=== PATIENT | female | born 1930 | race Caucasian/White ===

== ENCOUNTER 2016-07-29 13:24 | Inpatient (IN) | payer MEDICARE, BC ==
[~2016-07-29] VITALS: Ht 175.3 cm; Wt 65.5 kg
[~2016-07-29 13:24] MED LIST: ALEV220T14 PO; CETI10 PO; LEVO75TA41 PO; LORT5TAB PO; METO50TA11 PO; MOME17I; OMEP40CA2 PO; ONDA1TAB16 PO; SIMV20TA PO; TRAM50 PO
[2016-07-29 13:44] VITALS: BP 136/88; PULSE 78; RESP 16; TEMP 98.1; O2SAT 93
[2016-07-29] MEDS ORDERED: TRAM50TA PO (14:12)
[2016-07-29] MEDS ORDERED: BP med PO (14:12)
[2016-07-29] MEDS ORDERED: COUM5TAB PO (14:12)
[2016-07-29] MEDS ORDERED: LEVO75TA3 PO (14:12)
[2016-07-29] MEDS ORDERED: SODIUM CHLORIDE 0.9% FLUSH 10 ML FLUSH IVF PRN (14:15)
--- NOTE | 2016-07-29 14:29 | PD ---
HPI Chief Complaint: Fall Time Seen by Provider: 13:55 Travel History International Travel<30 days: No Contact w/Intl Traveler<30days: No Traveled to known affect area: No History of Present Illness HPI Patient is an 86-year-old female who presents to emergency room with complaints of fall. Patient reports that she was at the parking lot of a grocery store, reports that she lost her balance and fell backwards thing her buttocks. Patient reports that her head did go backwards and she the back of her head on the cement walkway. Patient denies loss of consciousness or dizziness or headache after fall. Patient reports that she is taking Coumadin as she has history of bilateral pulmonary emboli. Patient is unsure of when her last INR was. Patient reports that she was able to get up to ambulate after her fall with assist. Patient reports pain to her right buttochs as well as b/l elbows as this is where she took the brunt of her fall. Patient denies cp/sob. Denies abdominal pain. Reports nausea with no vomiting. Reports "everytime I get nervous, I feel nauseous." PFSH Past Medical History Arthritis: Yes Anxiety: Yes High Cholesterol: Yes Coronary Artery Disease: Yes Dementia: Yes Diminished Hearing: No Deep Vein Thrombosis: Yes GERD: Yes Hypertension: Yes Respiratory: Yes (PE) Thyroid Disease: Yes (Hypo-) Tetanus Vaccination: < 5 Years Influenza Vaccination: Yes ?: Not Menopausal: Yes Past Surgical History Body Medical Devices: IVC filter Hysterectomy: Yes Joint Replacement: Yes (BL hips, Lt. knee ) Tonsillectomy: Yes (& adenoids ) Other Surgery: Yes (Deviated septum ) Social History Alcohol Use: Yes (Occ.) Tobacco Use: No Substance Use: No Allergies-Medications (Allergen,Severity, Reaction): Coded Allergies: No Known Allergies (Unverified , 07/29/16) Reported Meds & Prescriptions Reported Meds & Active Scripts Active Reported [BP med] 1 Tab PO DAILY Tramadol (Tramadol HCl) 50 Mg Tab 50 Mg PO Q8H PRN Levothyroxine (Levothyroxine Sodium) 75 Mcg Tab 75 Mcg PO DAILY Coumadin (Warfarin) 5 Mg Tab 5 Mg PO DAILY Review of Systems General / Constitutional: No: Fever, Chills Eyes: No: Diploplia, Visual changes HENT: No: Headaches, Vertigo, Lightheadedness, Sore Throat Cardiovascular: No: Chest Pain or Discomfort Respiratory: No: Shortness of Breath Gastrointestinal: No: Abdominal Pain Genitourinary: No: Dysuria Musculoskeletal: Positive: Pain (pain to b/l elbows and rigth buttoch) Skin: No Rash Neurologic: No: Weakness Psychiatric: No: Depression Endocrine: No: Polydipsia Hematologic/Lymphatic: No: Easy Bruising Physical Exam Narrative GENERAL: NAD, Nontoxic SKIN: Focused skin assessment warm/dry. HEAD: Atraumatic. Normocephalic. EYES: Pupils equal and round. No scleral icterus. No injection or drainage. ENT: No nasal bleeding or discharge. Mucous membranes pink and moist. NECK: Trachea midline. No JVD. CARDIOVASCULAR: Regular rate and rhythm. No murmur appreciated. RESPIRATORY: No accessory muscle use. Clear to auscultation. Breath sounds equal bilaterally. GASTROINTESTINAL: Abdomen soft, non-tender, nondistended. Hepatic and splenic margins not palpable. patient with pain to left side of pelvis MUSCULOSKELETAL: No obvious deformities. No clubbing. No cyanosis. No edema. No midline tenderness, patient with pain to b/l elbows - she does have good ROM to both elbows - there is bruising to both elbows, patient with bruising and point tenderness to her right buttochs NEUROLOGICAL: Awake and alert. No obvious cranial nerve deficits. Motor grossly within normal limits. Normal speech. PSYCHIATRIC: Appropriate mood and affect; insight and judgment normal. Data Data Last Documented VS Vital Signs Date Time Temp Pulse Resp B/P Pulse Ox O2 Delivery O2 Flow Rate FiO2 07/29/16 16:35 70 14 147/87 95 Room Air 07/29/16 13:44 98.1 Orders Prothrombin Time / Inr (Pt) (07/29/16 14:04) Act Partial Throm Time (Ptt) (07/29/16 14:04) Complete Blood Count With Diff (07/29/16 14:04) Basic Metabolic Panel (Bmp) (07/29/16 14:04) Iv Access Insert/Monitor (07/29/16 14:04) Ondansetron Inj (Zofran Inj) (07/29/16 14:15) Sodium Chloride 0.9% Flush (Ns Flush) (07/29/16 14:15) Chest, Single Ap (07/29/16 14:04) Pelvis, Ap Only (Routine) (07/29/16 14:04) Ct Brain W/O Iv Contrast(Rout) (07/29/16 14:04) Ct Cerv Spine W/O Contrast (07/29/16 14:04) Spine, Lumbar - Ltd (Ap & Lat) (07/29/16 ) Ct Abd/Pel W Iv Contrast(Rout) (07/29/16 17:07) Add Patient To Providers List (07/29/16 ) Place In Observation (07/29/16 ) Vital Signs (Adult) Q4H (07/29/16 17:06) Activity Bed Rest (07/29/16 17:06) Sodium Chloride 0.9% Flush (Ns Flush) (07/29/16 17:15) Sodium Chloride 0.9% Flush (Ns Flush) (07/29/16 21:00) Ondansetron Inj (Zofran Inj) (07/29/16 17:15) Bisacodyl Supp (Dulcolax Supp) (07/29/16 17:15) Docusate Sodium (Colace) (07/29/16 21:00) Basic Metabolic Panel (Bmp) (07/30/16 06:00) Comprehensive Metabolic Panel (07/30/16 06:00) Prothrombin Time / Inr (Pt) (07/30/16 06:00) Pt Request For Service (07/29/16 17:06) Case Management Consult (07/29/16 17:06) Scd Bilateral/Knee High GAY.BID (07/29/16 17:06) Acetaminophen (Tylenol) (07/29/16 17:15) Acetamin-Hydrocod 325-5 Mg (Phelps 5-325 (07/29/16 17:15) Acetamin-Hydrocod 325-7.5 Mg (Phelps 7.5 (07/29/16 17:15) Morphine Inj (Morphine Inj) (07/29/16 17:15) Naloxone Inj (Narcan Inj) (07/29/16 17:15) ^ Other Nursing Orders (07/29/16 17:06) Creatine Kinase (Cpk) (07/30/16 06:00) Levothyroxine (Synthroid) (07/30/16 06:00) Enalaprilat Inj (Vasotec Inj) (07/29/16 17:15) Clonidine (Catapres) (07/29/16 17:15) Iohexol 350 Inj (Omnipaque 350 Inj) (07/29/16 17:49) Labs Laboratory Tests Test 07/29/16 14:35 White Blood Count 6.4 TH/MM3 Red Blood Count 4.48 MIL/MM3 Hemoglobin 13.0 GM/DL Hematocrit 38.7 % Mean Corpuscular Volume 86.5 FL Mean Corpuscular Hemoglobin 29.0 PG Mean Corpuscular Hemoglobin 33.6 % Concent Red Cell Distribution Width 15.5 % Platelet Count 187 TH/MM3 Mean Platelet Volume 8.3 FL Neutrophils (%) (Auto) 56.6 % Lymphocytes (%) (Auto) 30.9 % Monocytes (%) (Auto) 7.9 % Eosinophils (%) (Auto) 4.0 % Basophils (%) (Auto) 0.6 % Neutrophils # (Auto) 3.6 TH/MM3 Lymphocytes # (Auto) 2.0 TH/MM3 Monocytes # (Auto) 0.5 TH/MM3 Eosinophils # (Auto) 0.3 TH/MM3 Basophils # (Auto) 0.0 TH/MM3 CBC Comment DIFF FINAL Differential Comment Prothrombin Time 21.4 SEC Prothromb Time International 1.9 RATIO Ratio Activated Partial 29.8 SEC Thromboplast Time Sodium Level 143 MEQ/L Potassium Level 3.8 MEQ/L Chloride Level 108 MEQ/L Carbon Dioxide Level 26.1 MEQ/L Anion Gap 9 MEQ/L Blood Urea Nitrogen 13 MG/DL Creatinine 0.89 MG/DL Estimat Glomerular Filtration 60 ML/MIN Rate Random Glucose 100 MG/DL Calcium Level 9.2 MG/DL [facility] Medical Decision Making Medical Screen Exam Complete: Yes Emergency Medical Condition: Yes Interpretation(s) Vital Signs Date Time Temp Pulse Resp B/P Pulse Ox O2 Delivery O2 Flow Rate FiO2 07/29/16 13:44 98.1 78 16 136/88 93 Differential Diagnosis Intracranial hemorrhage, elbow fracture, sacral fracture, elbow contusion, Coumadin coagulopathy, pelvic fracture Narrative Course Patient is an 86-year-old female currently on Coumadin, presents to emergency room after she had a trip and fall outside of a grocery store. Patient reports that she tripped on the cement and fell backwards landing elbows and on her b/l elbows as well as her buttocks. Reports that her head did fall backward and did hit the pavement. Patient with no loc on scene. Patient was able to ambulate after her fall. Overall, patient is nontoxic and evaluation. Patient has no neurological deficits. Patient does have multiple abrasions on her elbows, buttochs. Patient with no hematoma or laceration to scalp. Plan to check coags, we'll scan head and neck. X-ray of the chest as well as pelvis and lumbar spine order. Laboratory Tests Test 07/29/16 14:35 White Blood Count 6.4 TH/MM3 (4.0-11.0) Red Blood Count 4.48 MIL/MM3 (4.00-5.30) Hemoglobin 13.0 GM/DL (11.6-15.3) Hematocrit 38.7 % (35.0-46.0) Mean Corpuscular Volume 86.5 FL (80.0-100.0) Mean Corpuscular Hemoglobin 29.0 PG (27.0-34.0) Mean Corpuscular Hemoglobin 33.6 % Concent (32.0-36.0) Red Cell Distribution Width 15.5 % (11.6-17.2) Platelet Count 187 TH/MM3 (150-450) Mean Platelet Volume 8.3 FL (7.0-11.0) Neutrophils (%) (Auto) 56.6 % (16.0-70.0) Lymphocytes (%) (Auto) 30.9 % (9.0-44.0) Monocytes (%) (Auto) 7.9 % (0.0-8.0) Eosinophils (%) (Auto) 4.0 % (0.0-4.0) Basophils (%) (Auto) 0.6 % (0.0-2.0) Neutrophils # (Auto) 3.6 TH/MM3 (1.8-7.7) Lymphocytes # (Auto) 2.0 TH/MM3 (1.0-4.8) Monocytes # (Auto) 0.5 TH/MM3 (0-0.9) Eosinophils # (Auto) 0.3 TH/MM3 (0-0.4) Basophils # (Auto) 0.0 TH/MM3 (0-0.2) CBC Comment DIFF FINAL Differential Comment Prothrombin Time 21.4 SEC (9.8-11.6) Prothromb Time International 1.9 RATIO Ratio Activated Partial 29.8 SEC Thromboplast Time (24.3-30.1) Sodium Level 143 MEQ/L (136-145) Potassium Level 3.8 MEQ/L (3.5-5.1) Chloride Level 108 MEQ/L (98-107) Carbon Dioxide Level 26.1 MEQ/L (21.0-32.0) Anion Gap 9 MEQ/L (5-15) Blood Urea Nitrogen 13 MG/DL (7-18) Creatinine 0.89 MG/DL (0.50-1.00) Estimat Glomerular Filtration 60 ML/MIN (>89) Rate Random Glucose 100 MG/DL (74-106) Calcium Level 9.2 MG/DL (8.5-10.1) Last Impressions Pelvis X-Ray 07/29/161403 Signed Impressions: Service Date/Time: July 14:16 - CONCLUSION: Fracture of left inferior pubic ramus not present on the study from 2012, however the chronicity is not certain. Natalya Katz MD Head CT 07/29/161403 Signed Impressions: Service Date/Time: July 15:05 - CONCLUSION: Slight atrophic and small vessel ischemic changes without any evidence for acute hemorrhage or mass effect. Natalya Katz MD Chest X-Ray 07/29/161403 Signed Impressions: Service Date/Time: July 14:25 - CONCLUSION: 1. Cardiomegaly. 2. Degenerative changes and scoliosis of the thoracolumbar spine. 3. No acute focal pulmonary infiltrate or pulmonary vascular congestion. Clark Wagner MD Cervical Spine CT 07/29/161403 Signed Impressions: Service Date/Time: July 15:05 - CONCLUSION: 1. Diffuse cervical spondylosis at all levels within the cervical spine. 2. Severe right neural foraminal narrowing at C5-6 and C4-5, moderate to severe left neural foraminal narrowing at C3-4, moderate bilateral foraminal narrowing at C6-7 and mild to moderate left neural foraminal narrowing at C4-5 and C5-6. 3. No acute fracture or prevertebral soft tissue swelling. 4. Fibrotic scarring within the apices bilaterally. Clark Wagner MD Lumbar Spine X-Ray 07/29/16 0000 Signed Impressions: Service Date/Time: July 14:11 - CONCLUSION: Chronic changes. Natalya Katz MD Case reviewed with patient Dr. Paul - patient is nonoperative, can stay at [facility] PO Case reviewed with Dr. Beth who accepts patient to service Diagnosis Primary Impression: Fracture of left inferior pubic ramus Qualified Code: S32.592A - Fracture of left inferior pubic ramus, closed, initial encounter Additional Impression: fall on coumadin Admitting Information Admitting Physician Requests: Admit Frances Johnson DO Jul 29, 2016 14:29
[2016-07-29] MEDS: ONDANSETRON HCL 4 MG/2 ML VIAL IVP ONE ×2 (14:39→15:56)
--- NOTE | 2016-07-29 14:47 | RADHPO ---
EXAM DATE/TIME: 07/29/2016 14:11 [facility] COMPARISON: No previous studies available for comparison. INDICATIONS : Low back pain; fall today. MEDICAL HISTORY : Scoliosis SURGICAL HISTORY : None. ENCOUNTER: Initial ACUITY: 1 day PAIN SCORE: 5/10 LOCATION: Lumbar spine. FINDINGS: No appreciable compression deformities, spondylolisthesis, or spondylolysis is seen. Significant deg enerative changes are seen within the disc space and facets worse at L4-5 and L5-S1 and there is diff use osteopenia in addition to scoliosis convexity towards the left. Chronic atherosclerotic calcifica tions are seen without any definite aneurysmal dilatations for technique. IVC filter is in place. CONCLUSION: Chronic changes. Natalya Katz MD on July 29, 2016 at 14:44 Board Certified Radiologist. This report was verified electronically.
--- NOTE | 2016-07-29 14:51 | RADHPO ---
EXAM DATE/TIME: 07/29/2016 14:16 [facility] COMPARISON: ABDOMEN FLAT & UPRIGHT, January 30, 2013, 14:36. INDICATIONS : Pelvic pain; fall today. MEDICAL HISTORY : Arthritis. SURGICAL HISTORY : Bilateral hip replacement. ENCOUNTER: Initial ACUITY: 1 day PAIN SCORE: 5/10 LOCATION: Bilateral pelvis FINDINGS: Total hip arthroplasty is in place bilaterally. The femoral and acetabular components appear intact. There are no signs of loosening or fracture. There is a fracture of the inferior pubic ramus on the left not present on the prior KUB from 01/2013, however could potentially be subacute.. Diffuse oste openia is seen. CONCLUSION: Fracture of left inferior pubic ramus not present on the study from 2012, however the chronicity is n ot certain. K. Corey Katz MD on July 29, 2016 at 14:47 Board Certified Radiologist. This report was verified electronically.
[2016-07-29 15:15] LABS: AUTOMATED NEUTROPHIL # 3.6 TH/MM3 (1.8-7.7); BASOPHIL % 0.6 % (0.0-2.0); EOSINOPHIL # 0.3 TH/MM3 (0-0.4); HEMATOCRIT 38.7 % (35.0-46.0); HEMO FLAGS DIFF FINAL; LYMPH % 30.9 % (9.0-44.0); MEAN CELL VOLUME 86.5 FL (80.0-100.0); MEAN CORPUSCULAR HGB CONC 33.6 % (32.0-36.0); MONO % 7.9 % (0.0-8.0); NEUT % 56.6 % (16.0-70.0); PLATELET COUNT 187 TH/MM3 (150-450); RED BLOOD COUNT 4.48 MIL/MM3 (4.00-5.30); RED CELL DISTRIBUTION WIDTH 15.5 % (11.6-17.2); WHITE BLOOD COUNT 6.4 TH/MM3 (4.0-11.0)
[2016-07-29 15:20] LABS: POTASSIUM 3.8 MEQ/L (3.5-5.1)
[2016-07-29 15:25] LABS: APTT (PATIENT) 29.8 SEC (24.3-30.1); BICARBONATE 26.1 MEQ/L (21.0-32.0); INTERNATIONAL NORMALIZED RATIO 1.9 RATIO; PROTHROMBIN TIME - PATIENT 21.4 SEC (9.8-11.6)
--- NOTE | 2016-07-29 15:25 | RADHPO ---
EXAM DATE/TIME: 07/29/2016 15:05 [facility] COMPARISON: No previous studies available for comparison. INDICATIONS : Trauma. Fall. Hit back of her head. RADIATION DOSE: 63.28 CTDIvol (mGy) MEDICAL HISTORY : Dementia. Deep venous thrombosis. Hypertension. SURGICAL HISTORY : Hysterectomy. ENCOUNTER: Initial ACUITY: 1 day PAIN SCALE: 6/10 LOCATION: cranial TECHNIQUE: Multiple contiguous axial images were obtained of the head. Using automated exposure control and adj ustment of the mA and/or kV according to patient size, radiation dose was kept as low as reasonably a chievable to obtain optimal diagnostic quality images. FINDINGS: There is no evidence for intracranial hemorrhage, mass effect, mass lesions, or edema. The visualize d bony structures appear intact. Slight degree of brain atrophy is seen. Slight periventricular whit e matter changes are seen nonspecific mostly consistent with chronic small vessel ischemic changes. There are no signs of acute infarction for technique. CONCLUSION: Slight atrophic and small vessel ischemic changes without any evidence for acute hemorrhage or mass effect. Natalya Katz MD on July 29, 2016 at 15:21 Board Certified Radiologist. This report was verified electronically.
--- NOTE | 2016-07-29 15:26 | RADHPO ---
EXAM DATE/TIME: 07/29/2016 14:25 [facility] COMPARISON: No previous studies available for comparison. INDICATIONS : Chest discomfort; fell today. MEDICAL HISTORY : Hypertension. Arthritis. Coronary artery disease. SURGICAL HISTORY : None. ENCOUNTER: Initial ACUITY: 1 day PAIN SCORE: 0/10 LOCATION: Bilateral chest FINDINGS: The heart is enlarged. The pulmonary vascular pattern is normal. The lungs are clear. Degenerative changes and scoliosis of the thoracolumbar spine are noted. CONCLUSION: 1. Cardiomegaly. 2. Degenerative changes and scoliosis of the thoracolumbar spine. 3. No acute focal pulmonary infiltrate or pulmonary vascular congestion. Clark Wagner MD on July 29, 2016 at 15:22 Board Certified Radiologist. This report was verified electronically.
[2016-07-29 15:58] VITALS: BP 166/85; PULSE 69; RESP 16; O2SAT 96
--- NOTE | 2016-07-29 16:04 | RADHPO ---
EXAM DATE/TIME: 07/29/2016 15:05 [facility] COMPARISON: No previous studies available for comparison. INDICATIONS : Trauma. Fall. Hit back of her head. RADIATION DOSE: 26.53 CTDIvol (mGy) MEDICAL HISTORY : Deep venous thrombosis. Dementia. Hypertension. SURGICAL HISTORY : Hysterectomy. ENCOUNTER: Initial ACUITY: 1 day PAIN SCALE: 2/10 LOCATION: Neck TECHNIQUE: Volumetric scanning of the cervical spine was performed. Multiplanar reconstructions in the sagittal, coronal and oblique axial planes were performed. Using automated exposure control and adjustment o f the mA and/or kV according to patient size, radiation dose was kept as low as reasonably achievable to obtain optimal diagnostic quality images. FINDINGS: Cervical spondylosis is noted at all levels within the cervical spine from C2 through C7. There is n o acute fracture or prevertebral soft tissue swelling. Severe right neural foraminal narrowing is no alex at C4-5 and C5-6, moderate to severe left neural foraminal narrowing is noted at C3-4 and moderat e bilateral foraminal narrowing is noted at C6-7. Mild to moderate left neural foraminal narrowing i s noted at C4-5 and C5-6. No significant bony spinal canal stenosis is noted. Diffuse disc osteophy te complexes are noted at C2-3, C3-4, C4-5, C5-6 and C6-7. Vacuum disc phenomenon is noted at C6-7 a nd C5-6. The bony relationship and alignment between C1 and C2 is well maintained. Fibrotic scarrin g is noted within the visualized lung apices. CONCLUSION: 1. Diffuse cervical spondylosis at all levels within the cervical spine. 2. Severe right neural foraminal narrowing at C5-6 and C4-5, moderate to severe left neural foraminal narrowing at C3-4, moderate bilateral foraminal narrowing at C6-7 and mild to moderate left neural f oraminal narrowing at C4-5 and C5-6. 3. No acute fracture or prevertebral soft tissue swelling. 4. Fibrotic scarring within the apices bilaterally. Clark Wagner MD on July 29, 2016 at 15:50 Board Certified Radiologist. This report was verified electronically.
[2016-07-29 16:35] VITALS: BP 147/87; PULSE 70; RESP 14; O2SAT 95
[2016-07-29] MEDS ORDERED: cloNIDine HCL 0.1 MG TAB PO PRN (17:15)
[2016-07-29] MEDS ORDERED: BISACODYL 10 MG SUPP RECTAL PRN (17:15)
[2016-07-29] MEDS ORDERED: MORPHINE SULFATE 4 MG/ML INJ IV PRN (17:15)
[2016-07-29] MEDS ORDERED: ACETAMINOPHEN 325 MG TAB PO PRN (17:15)
[2016-07-29] MEDS ORDERED: ENALAPRILAT 1.25 MG/ML VIAL IV PRN (17:15)
[2016-07-29] MEDS ORDERED: ONDANSETRON HCL 4 MG/2 ML VIAL IVP PRN (17:15)
[2016-07-29] MEDS ORDERED: SODIUM CHLORIDE 0.9% FLUSH 10 ML FLUSH IV FLUSH PRN (17:15)
[2016-07-29] MEDS ORDERED: NALOXONE HCL 0.4 MG/ML AMP IV PRN (17:15)
[2016-07-29] MEDS ORDERED: IOHEXOL 350 MG/ML 10 ML VIAL (for RAD DIAG) IV ONE (17:49)
--- NOTE | 2016-07-29 18:12 | RADHPO ---
EXAM DATE/TIME: 07/29/2016 17:32 [facility] COMPARISON: No previous studies available for comparison. INDICATIONS : Trauma. Fall. Right buttock pain, bruising and swelling. Evaluate pelvic fracture. IV CONTRAST: 80 cc Omnipaque 350 (iohexol) IV ORAL CONTRAST: No oral contrast ingested. RADIATION DOSE: 8.28 CTDIvol (mGy) MEDICAL HISTORY : Dementia. Deep venous thrombosis. Hypertension. SURGICAL HISTORY : Hysterectomy. ENCOUNTER: Initial ACUITY: 1 day PAIN SCALE: 7/10 LOCATION: Right lower quadrant TECHNIQUE: Volumetric scanning of the abdomen and pelvis was performed. Using automated exposure control and ad justment of the mA and/or kV according to patient size, radiation dose was kept as low as reasonably achievable to obtain optimal diagnostic quality images. FINDINGS: CT Abdomen: The liver, spleen, pancreas, kidneys, adrenals are unremarkable. There is no evidence for any appreciable pathological adenopathy, free fluid, or bowel obstruction. IVC filter is in place. Chronic vascular calcifications are present involving the aorta, iliac arteries without any significa nt stenosis or aneurysmal dilatations for technique. There is scarring in the left lung base. Evidenc e for prior granulomatous exposure with multiple calcified granulomas in the liver and spleen. There is small ventral fat herniation without evidence for bowel herniation. There is a cystic mass involvi ng the anterior wall of the stomach measuring 1.[address] pelvis: There is no evidence for mass, abscess formation, or any significant adenopathy within the pelvis. There are degenerative changes and possible bulging discs in the lower lumbosacral spine not adequately characterized.There is old healed inferior pubic ramus fracture on the left. There are sc attered diverticuli mainly in the sigmoid colon without definite signs of diverticulitis. CONCLUSION: 1. Nonspecific cystic mass of the wall of the stomach most likely benign could be followed. 2. Otherwise chronic and benign changes. Natalya Katz MD on July 29, 2016 at 18:06 Board Certified Radiologist. This report was verified electronically.
[2016-07-29 19:16] VITALS: BP 117/83; PULSE 78; RESP 16; O2SAT 98
[2016-07-29 20:00] VITALS: BP 129/92; PULSE 78; RESP 18; TEMP 96; O2SAT 99
[2016-07-29] MEDS: SODIUM CHLORIDE 0.9% FLUSH 10 ML FLUSH IV FLUSH SCH (21:00)
[2016-07-29] MEDS: DOCUSATE SODIUM 100 MG CAP PO SCH (21:00)
[2016-07-30] VITALS: BP 128/81; PULSE 68; RESP 16; TEMP 98.2; O2SAT 82
[2016-07-30] MEDS: LEVOTHYROXINE SODIUM 75 MCG TAB PO SCH (05:56)
[2016-07-30 08:00] VITALS: BP 107/68; PULSE 65; RESP 18; TEMP 97; O2SAT 97
[2016-07-30 08:08] LABS: INTERNATIONAL NORMALIZED RATIO 1.7 RATIO; PROTHROMBIN TIME - PATIENT 18.9 SEC (9.8-11.6)
[2016-07-30 08:09] LABS: CHLORIDE 107 MEQ/L (98-107); POTASSIUM 4.3 MEQ/L (3.5-5.1); SODIUM (NA) 143 MEQ/L (136-145)
[2016-07-30 08:14] LABS: ANION GAP 8 MEQ/L (5-15); BICARBONATE 28.2 MEQ/L (21.0-32.0); BLOOD UREA NITROGEN 17 MG/DL (7-18)
[2016-07-30 08:16] LABS: ALT (GPT) 15 U/L (10-53)
[2016-07-30 08:17] LABS: AST (GOT) 14 U/L (15-37); GLOMERULAR FILTRATION RATE 60 ML/MIN (>89)
[2016-07-30 08:18] LABS: TOTAL BILIRUBIN ADULT 0.9 MG/DL (0.2-1.0)
[2016-07-30 08:19] LABS: ALKALINE PHOSPHATASE 57 U/L (45-117)
[2016-07-30 08:22] LABS: CREATINE KINASE 74 U/L (26-192)
--- NOTE | 2016-07-30 08:37 | HHI.HP ---
[facility] Non-Staff Admission Diagnosis pubic ramus fracture Diagnoses: Chief Complaint: Fall, hip pain. Travel History International Travel<30 Days: No Contact w/Intl Traveler <30 Da: No Traveled to Known Affected Are: No History of Present Illness Ms. York is a pleasant 86-year-old female with a history of dementia, hypothyroidism, pulmonary embolism who presents to the emergency department on due to a mechanical fall in the parking lot. She denies any chest pain , shortness of breath, cough or fever or chills prior to her fall. Imaging studies in the ED shows left inferior pubic ramus fracture. Orthopedic surgery was contacted by ED provider and orthopedic surgery recommended no surgical intervention at this point. Currently patient reports good pain control. However when she moves she has pain. Denies any changes in bowel or bladder habits. Review of Systems ROS Limitations: Other Except as stated in HPI: all other systems reviewed are Neg Past Family Social History Past Medical History Hernia Hyperlipidemia Past Surgical History Two hip replacement, knee replacement, hysterectomy, deviated septum surgery, tonsillectomy Reported Medications [BP med] 1 Tab PO DAILY Tramadol (Tramadol HCl) 50 Mg Tab 50 Mg PO Q8H PRN Levothyroxine (Levothyroxine Sodium) 75 Mcg Tab 75 Mcg PO DAILY Coumadin (Warfarin) 5 Mg Tab 5 Mg PO DAILY Allergies: Coded Allergies: No Known Allergies (Unverified , 07/29/16) Family History No family history of Alzheimer's or Parkinson's. Social History No tobacco. Drinks occasionally. Physical Exam Vital Signs Vital Signs Date Time Temp Pulse Resp B/P Pulse Ox O2 Delivery O2 Flow Rate FiO2 07/30/16 00:00 98.2 68 16 128/81 82 07/29/16 20:00 96.0 78 18 129/92 99 07/29/16 19:16 78 16 117/83 98 Room Air 07/29/16 19:16 98 Room Air 07/29/16 16:35 70 14 147/87 95 Room Air 07/29/16 15:58 69 16 166/85 96 Room Air 07/29/16 13:44 98.1 78 16 136/88 93 Physical Exam GENERAL: This is a well-nourished, well-developed patient, in no apparent distress. SKIN: No rashes, ecchymoses or lesions. Warm and dry. HEAD: Atraumatic. Normocephalic. No temporal or scalp tenderness. EYES: Pupils equal round and reactive. No injection or drainage. ENT: Nose without bleeding, purulent drainage or septal hematoma. Airway patent. NECK: Trachea midline. No lymphadenopathy. Supple, nontender, no meningeal signs. CARDIOVASCULAR: Regular rate and rhythm without murmurs, gallops, or rubs. No JVD. RESPIRATORY: Clear to auscultation. Breath sounds equal bilaterally. No wheezes , rales, or rhonchi. GASTROINTESTINAL: Abdomen soft, non-tender, nondistended. No guarding. MUSCULOSKELETAL: Extremities without clubbing, cyanosis, or edema. Pain on movement of right leg. NEUROLOGICAL: Awake and alert. Cranial nerves II through XII intact. No focal neurological deficits. Normal speech. Laboratory Laboratory Tests Test 07/29/16 07/30/16 14:35 07:17 White Blood Count 6.4 Red Blood Count 4.48 Hemoglobin 13.0 Hematocrit 38.7 Mean Corpuscular Volume 86.5 Mean Corpuscular Hemoglobin 29.0 Mean Corpuscular Hemoglobin 33.6 Concent Red Cell Distribution Width 15.5 Platelet Count 187 Mean Platelet Volume 8.3 Neutrophils (%) (Auto) 56.6 Lymphocytes (%) (Auto) 30.9 Monocytes (%) (Auto) 7.9 Eosinophils (%) (Auto) 4.0 Basophils (%) (Auto) 0.6 Neutrophils # (Auto) 3.6 Lymphocytes # (Auto) 2.0 Monocytes # (Auto) 0.5 Eosinophils # (Auto) 0.3 Basophils # (Auto) 0.0 CBC Comment DIFF FINAL Differential Comment Prothrombin Time 21.4 18.9 Prothromb Time International 1.9 1.7 Ratio Activated Partial 29.8 Thromboplast Time Sodium Level 143 143 Potassium Level 3.8 4.3 Chloride Level 108 107 Carbon Dioxide Level 26.1 28.2 Anion Gap 9 8 Blood Urea Nitrogen 13 17 Creatinine 0.89 0.90 Estimat Glomerular Filtration 60 60 Rate Random Glucose 100 101 Calcium Level 9.2 8.5 Total Bilirubin 0.9 Aspartate Amino Transf 14 (AST/SGOT) Alanine Aminotransferase 15 (ALT/SGPT) Alkaline Phosphatase 57 Total Creatine Kinase 74 Total Protein 5.4 Albumin 3.0 Result Diagram: 07/29/16 1435 07/30/16 0717 Imaging Last Impressions Abdomen/Pelvis CT 07/29/16 1707 Signed Impressions: Service Date/Time: July 17:32 - CONCLUSION: 1. Nonspecific cystic mass of the wall of the stomach most likely benign could be followed. 2. Otherwise chronic and benign changes. Natalya Katz MD Pelvis X-Ray 07/29/16 1404 Signed Impressions: Service Date/Time: July 14:16 - CONCLUSION: Fracture of left inferior pubic ramus not present on the study from 2012, however the chronicity is not certain. Natalya Katz MD Head CT 07/29/16 1404 Signed Impressions: Service Date/Time: July 15:05 - CONCLUSION: Slight atrophic and small vessel ischemic changes without any evidence for acute hemorrhage or mass effect. Natalya Katz MD Chest X-Ray 07/29/16 1404 Signed Impressions: Service Date/Time: July 14:25 - CONCLUSION: 1. Cardiomegaly. 2. Degenerative changes and scoliosis of the thoracolumbar spine. 3. No acute focal pulmonary infiltrate or pulmonary vascular congestion. Clark Wagner MD Cervical Spine CT 07/29/16 1404 Signed Impressions: Service Date/Time: July 15:05 - CONCLUSION: 1. Diffuse cervical spondylosis at all levels within the cervical spine. 2. Severe right neural foraminal narrowing at C5-6 and C4-5, moderate to severe left neural foraminal narrowing at C3-4, moderate bilateral foraminal narrowing at C6-7 and mild to moderate left neural foraminal narrowing at C4-5 and C5-6. 3. No acute fracture or prevertebral soft tissue swelling. 4. Fibrotic scarring within the apices bilaterally. Clark Wagner MD Lumbar Spine X-Ray 07/29/16 0000 Signed Impressions: Service Date/Time: July 14:11 - CONCLUSION: Chronic changesJose Katz MD Assessment and Plan Problem List: (1) Fracture of left inferior pubic ramus ICD Code: S32.592A Status: Acute (2) Hypothyroidism ICD Code: E03.9 Status: Acute (3) Hx of pulmonary embolus ICD Code: Z86.711 Status: Acute Assessment and Plan Ms. York is a pleasant 86-year-old female with a history of dementia, hypothyroidism, pulmonary embolism who presents to the emergency department on due to a mechanical fall. She sustained left inferior pubic ramus fracture. Orthopedic surgery recommended non-operative conservative management. - Left inferior pubic ramus fracture - [place], morphine for pain. - Will request case management to look into rehabilitation possibilities. - Continue physical therapy. - Hypothyroidism - continue levothyroxine 75 g daily. - History of pulmonary embolism - INR 1.7. - Resume Warfarin 5mg QDay. - INR check in the AM. Full code. Warfarin. Discharge Plan: Once SNF is arranged, patient can be discharged. Problem Qualifiers (1) Fracture of left inferior pubic ramus: Qualified Code: S32.592A - Fracture of left inferior pubic ramus, closed, initial encounter Alonso Frances DO Jul 30, 2016 08:37
[2016-07-30] MEDS: DOCUSATE SODIUM 100 MG CAP PO SCH ×2 (08:51→21:21)
[2016-07-30] MEDS: ACETAMINOPHEN/HYDROcodone 325 MG/7.5 MG TAB PO PRN (08:51)
[2016-07-30] MEDS: SODIUM CHLORIDE 0.9% FLUSH 10 ML FLUSH IV FLUSH SCH ×2 (09:00→21:22)
[2016-07-30 12:00] VITALS: BP 109/67; PULSE 79; RESP 20; TEMP 96.9; O2SAT 96
[2016-07-30] MEDS: ACETAMINOPHEN/HYDROcodone 325 MG/5 MG TAB PO PRN ×2 (13:27→21:22)
[2016-07-30 16:00] VITALS: BP 108/72; PULSE 76; RESP 18; TEMP 97.4; O2SAT 96
[2016-07-30] MEDS: WARFARIN SOD 5 MG TAB PO SCH (17:25)
[2016-07-30 21:19] VITALS: BP 102/64; PULSE 89; RESP 16; TEMP 97.8; O2SAT 93
[2016-07-31 00:47] VITALS: BP 99/61; PULSE 82; RESP 14; TEMP 96.9; O2SAT 91
[2016-07-31 00:56] VITALS: BP 123/75
[2016-07-31] MEDS: LEVOTHYROXINE SODIUM 75 MCG TAB PO SCH (04:52)
[2016-07-31 07:35] LABS: INTERNATIONAL NORMALIZED RATIO 1.5 RATIO; PROTHROMBIN TIME - PATIENT 16.9 SEC (9.8-11.6)
[2016-07-31 08:00] VITALS: BP 119/70; PULSE 72; RESP 20; TEMP 96.5; O2SAT 92
[2016-07-31] MEDS ORDERED: WARFARIN SOD 5 MG TAB PO SCH (09:00)
[2016-07-31] MEDS: DOCUSATE SODIUM 100 MG CAP PO SCH ×2 (09:02→20:25)
[2016-07-31] MEDS: SODIUM CHLORIDE 0.9% FLUSH 10 ML FLUSH IV FLUSH SCH ×2 (09:03→20:27)
[2016-07-31 12:00] VITALS: BP 120/74; PULSE 80; RESP 20; TEMP 96.2; O2SAT 97
[2016-07-31] MEDS: WARFARIN SOD 5 MG TAB PO SCH (15:02)
[2016-07-31 16:00] VITALS: BP 118/79; PULSE 75; RESP 20; TEMP 97.8; O2SAT 95
[2016-07-31] MEDS: ACETAMINOPHEN/HYDROcodone 325 MG/5 MG TAB PO PRN ×2 (16:17→22:20)
--- NOTE | 2016-07-31 16:20 | HHI.PR ---
Subjective Remarks Follow-up for left inferior pubic ramus fracture. Patient reports persistent right-sided hip pain. No fever or chills. Would like to get up and walk little bit. Objective Vitals Vital Signs Date Time Temp Pulse Resp B/P Pulse Ox O2 Delivery O2 Flow Rate FiO2 07/31/16 12:00 96.2 80 20 120/74 97 07/31/16 08:00 96.5 72 20 119/70 92 07/31/16 00:56 123/75 07/31/16 00:47 96.9 82 14 99/61 91 07/30/16 21:19 97.8 89 16 102/64 93 I/O 07/30/16 07/30/16 07/30/16 07/31/16 07/31/16 07/31/16 07:00 15:00 23:00 07:00 15:00 23:00 Intake Total 400 ml 650 ml 350 ml 740 ml Output Total 425 ml 400 ml 200 ml Balance 400 ml 225 ml -50 ml -200 ml 740 ml Intake Oral 400 ml 650 ml 350 ml 740 ml Output Urine Total 425 ml 400 ml 200 ml # Voids 1 1 3 4 # Bowel Movements 0 0 0 Result Diagram: 07/29/16 1435 07/30/16 0717 Imaging Last Impressions Abdomen/Pelvis CT 07/29/16 1707 Signed Impressions: Service Date/Time: July 17:32 - CONCLUSION: 1. Nonspecific cystic mass of the wall of the stomach most likely benign could be followed. 2. Otherwise chronic and benign changes. Natalya Katz MD Pelvis X-Ray 07/29/161403 Signed Impressions: Service Date/Time: July 14:16 - CONCLUSION: Fracture of left inferior pubic ramus not present on the study from 2012, however the chronicity is not certain. Natalya Katz MD Head CT 07/29/161403 Signed Impressions: Service Date/Time: July 15:05 - CONCLUSION: Slight atrophic and small vessel ischemic changes without any evidence for acute hemorrhage or mass effect. Natalya Katz MD Chest X-Ray 07/29/161403 Signed Impressions: Service Date/Time: July 14:25 - CONCLUSION: 1. Cardiomegaly. 2. Degenerative changes and scoliosis of the thoracolumbar spine. 3. No acute focal pulmonary infiltrate or pulmonary vascular congestion. Clark Wagner MD Cervical Spine CT 07/29/16 1404 Signed Impressions: Service Date/Time: July 15:05 - CONCLUSION: 1. Diffuse cervical spondylosis at all levels within the cervical spine. 2. Severe right neural foraminal narrowing at C5-6 and C4-5, moderate to severe left neural foraminal narrowing at C3-4, moderate bilateral foraminal narrowing at C6-7 and mild to moderate left neural foraminal narrowing at C4-5 and C5-6. 3. No acute fracture or prevertebral soft tissue swelling. 4. Fibrotic scarring within the apices bilaterally. Clark Wagner MD Lumbar Spine X-Ray 07/29/16 0000 Signed Impressions: Service Date/Time: July 14:11 - CONCLUSION: Chronic changes. KJose Katz MD Objective Remarks GENERAL: Alert, NAD. SKIN: Warm and dry. HEAD: Normocephalic. EYES: No scleral icterus. No injection or drainage. NECK: Supple, trachea midline. No JVD or lymphadenopathy. CARDIOVASCULAR: Regular rate and rhythm without murmurs, gallops, or rubs. RESPIRATORY: Breath sounds equal bilaterally. No accessory muscle use. GASTROINTESTINAL: Abdomen soft, non-tender, nondistended. MUSCULOSKELETAL: No cyanosis, or edema. Pain on movement of right leg. BACK: Nontender without obvious deformity. No CVA tenderness. Procedures None. A/P Problem List: (1) Fracture of left inferior pubic ramus ICD Code: S32.592A Status: Acute (2) Hypothyroidism ICD Code: E03.9 Status: Acute (3) Hx of pulmonary embolus ICD Code: Z86.711 Status: Acute Assessment and Plan Ms. York is a pleasant 86-year-old female with a history of dementia, hypothyroidism, pulmonary embolism who presents to the emergency department on due to a mechanical fall. She sustained left inferior pubic ramus fracture. Orthopedic surgery recommended non-operative conservative management. - Left inferior pubic ramus fracture - [place], morphine for pain. - case management to look into rehabilitation possibilities. - Continue PT. If SNF is not arranged, home health would be an option. - Hypothyroidism - continue levothyroxine 75 g daily. - History of pulmonary embolism - INR 1.5. - Continue Warfarin 5mg QDay. Full code. Warfarin. Problem Qualifiers (1) Fracture of left inferior pubic ramus: Qualified Code: S32.592A - Fracture of left inferior pubic ramus, closed, initial encounter Alonso Frances DO Jul 31, 2016 4:20 pm
[2016-07-31 20:25] VITALS: BP 140/70; PULSE 91; RESP 16; TEMP 97.6; O2SAT 90
[2016-08-01 00:38] VITALS: BP 136/78; PULSE 90; RESP 16; TEMP 97.9; O2SAT 92
[2016-08-01] MEDS: LEVOTHYROXINE SODIUM 75 MCG TAB PO SCH (06:16)
[2016-08-01 08:00] VITALS: BP 140/81; PULSE 78; RESP 20; TEMP 97; O2SAT 94
[2016-08-01] MEDS: DOCUSATE SODIUM 100 MG CAP PO SCH ×2 (08:22→21:05)
[2016-08-01] MEDS: SODIUM CHLORIDE 0.9% FLUSH 10 ML FLUSH IV FLUSH SCH ×2 (08:22→21:00)
[2016-08-01] MEDS: MAGNESIUM HYDROXIDE SUSP 30 ML CUP PO PRN (11:12)
--- NOTE | 2016-08-01 11:43 | HHI.PR ---
Subjective Remarks Follow up for left inferior pubic ramus fracture. Patient is doing well. No acute concerns. She would like to get up and walk. Objective Vitals Vital Signs Date Time Temp Pulse Resp B/P Pulse Ox O2 Delivery O2 Flow Rate FiO2 08/01/16 08:00 97.0 78 20 140/81 94 08/01/16 00:38 97.9 90 16 136/78 92 07/31/16 23:22 18 07/31/16 20:25 97.6 91 16 140/70 90 07/31/16 16:00 97.8 75 20 118/79 95 07/31/16 12:00 96.2 80 20 120/74 97 I/O 07/31/16 07/31/16 07/31/16 08/01/16 08/01/16 08/01/16 07:00 15:00 23:00 07:00 15:00 23:00 Intake Total 740 ml Output Total 200 ml Balance -200 ml 740 ml Intake Oral 740 ml Output Urine Total 200 ml # Voids 3 4 4 3 Result Diagram: 07/29/16 1435 07/30/16 0717 Imaging Last Impressions Abdomen/Pelvis CT 07/29/16 1707 Signed Impressions: Service Date/Time: July 17:32 - CONCLUSION: 1. Nonspecific cystic mass of the wall of the stomach most likely benign could be followed. 2. Otherwise chronic and benign changes. Natalya Katz MD Pelvis X-Ray 07/29/161403 Signed Impressions: Service Date/Time: July 14:16 - CONCLUSION: Fracture of left inferior pubic ramus not present on the study from 2012, however the chronicity is not certain. Natalya Katz MD Head CT 07/29/16 140 Signed Impressions: Service Date/Time: July 15:05 - CONCLUSION: Slight atrophic and small vessel ischemic changes without any evidence for acute hemorrhage or mass effect. Natalya Katz MD Chest X-Ray 07/29/16 140 Signed Impressions: Service Date/Time: July 14:25 - CONCLUSION: 1. Cardiomegaly. 2. Degenerative changes and scoliosis of the thoracolumbar spine. 3. No acute focal pulmonary infiltrate or pulmonary vascular congestion. Clark Wagner MD Cervical Spine CT 07/29/16 1404 Signed Impressions: Service Date/Time: July 15:05 - CONCLUSION: 1. Diffuse cervical spondylosis at all levels within the cervical spine. 2. Severe right neural foraminal narrowing at C5-6 and C4-5, moderate to severe left neural foraminal narrowing at C3-4, moderate bilateral foraminal narrowing at C6-7 and mild to moderate left neural foraminal narrowing at C4-5 and C5-6. 3. No acute fracture or prevertebral soft tissue swelling. 4. Fibrotic scarring within the apices bilaterally. Clark Wagner MD Lumbar Spine X-Ray 07/29/16 0000 Signed Impressions: Service Date/Time: July 14:11 - CONCLUSION: Chronic changes. Natalya Katz MD Objective Remarks GENERAL: Alert, NAD. SKIN: Warm and dry. HEAD: Normocephalic. EYES: No scleral icterus. No injection or drainage. NECK: Supple, trachea midline. No JVD or lymphadenopathy. CARDIOVASCULAR: Regular rate and rhythm without murmurs, gallops, or rubs. RESPIRATORY: Breath sounds equal bilaterally. No accessory muscle use. GASTROINTESTINAL: Abdomen soft, non-tender, nondistended. MUSCULOSKELETAL: No cyanosis, or edema. Pain on movement of right leg. BACK: Nontender without obvious deformity. No CVA tenderness. Procedures None. A/P Problem List: (1) Fracture of left inferior pubic ramus ICD Code: S32.592A Status: Acute (2) Hypothyroidism ICD Code: E03.9 Status: Acute (3) Hx of pulmonary embolus ICD Code: Z86.711 Status: Acute Assessment and Plan Ms. York is a pleasant 86-year-old female with a history of dementia, hypothyroidism, pulmonary embolism who presents to the emergency department on due to a mechanical fall. She sustained left inferior pubic ramus fracture. Orthopedic surgery recommended non-operative conservative management. - Left inferior pubic ramus fracture - [place], morphine for pain. - case management to look into rehabilitation possibilities. - Continue PT. If SNF is not arranged, home health would be an option. Will discuss with PT on Tuesday08/02/2016 to see if home with home health would be reasonable. - Hypothyroidism - continue levothyroxine 75 g daily. - History of pulmonary embolism - INR 1.5. - Continue Warfarin 5mg QDay. Full code. Warfarin. Problem Qualifiers (1) Fracture of left inferior pubic ramus: Qualified Code: S32.592A - Fracture of left inferior pubic ramus, closed, initial encounter Alonso Frances DO Aug 01, 2016 11:42 am
[2016-08-01 12:00] VITALS: BP 137/81; PULSE 70; RESP 20; TEMP 96.8; O2SAT 96
[2016-08-01] MEDS: WARFARIN SOD 5 MG TAB PO SCH (15:30)
[2016-08-01 16:00] VITALS: BP 122/78; PULSE 71; RESP 20; TEMP 96.5; O2SAT 96
[2016-08-01] MEDS: ACETAMINOPHEN/HYDROcodone 325 MG/5 MG TAB PO PRN (17:07)
[2016-08-01 20:00] VITALS: BP 125/72; PULSE 77; RESP 18; TEMP 96.8; O2SAT 96
[2016-08-02] VITALS: BP_SYST 125; BP_SYST 159; BP_DIAS 72; BP_DIAS 94; PULSE 77; PULSE 90; RESP 18; TEMP 96.8; TEMP 98.3; O2SAT 96
[2016-08-02] MEDS: LEVOTHYROXINE SODIUM 75 MCG TAB PO SCH (06:41)
[2016-08-02 06:49] LABS: INTERNATIONAL NORMALIZED RATIO 1.5 RATIO
[2016-08-02] MEDS: ACETAMINOPHEN/HYDROcodone 325 MG/5 MG TAB PO PRN ×2 (06:50→20:10)
[2016-08-02 08:00] VITALS: BP 135/84; PULSE 70; RESP 16; TEMP 96.8; O2SAT 96
[2016-08-02] MEDS: DOCUSATE SODIUM 100 MG CAP PO SCH ×2 (09:21→20:09)
[2016-08-02] MEDS: ACETAMINOPHEN/HYDROcodone 325 MG/7.5 MG TAB PO PRN ×2 (09:21→15:57)
[2016-08-02] MEDS: SODIUM CHLORIDE 0.9% FLUSH 10 ML FLUSH IV FLUSH SCH ×2 (09:21→20:10)
[2016-08-02] MEDS: MAGNESIUM HYDROXIDE SUSP 30 ML CUP PO PRN (09:23)
[2016-08-02 12:00] VITALS: BP 144/99; PULSE 80; RESP 16; TEMP 97; O2SAT 95
[2016-08-02] MEDS: WARFARIN SOD 5 MG TAB PO SCH (15:57)
[2016-08-02 16:00] VITALS: BP 133/80; PULSE 80; RESP 16; TEMP 97.2; O2SAT 95
[2016-08-02 20:00] VITALS: BP 122/77; PULSE 72; RESP 20; TEMP 97; O2SAT 99
--- NOTE | 2016-08-02 22:41 | HHI.PR ---
Subjective Remarks Follow up for left pubic ramus fracture. Patient is doing well. Complains of right hip pain on movement. No fever, chills. Objective Vitals Vital Signs Date Time Temp Pulse Resp B/P Pulse Ox O2 Delivery O2 Flow Rate FiO2 08/02/16 20:00 97.0 72 20 122/77 99 08/02/16 17:00 18 08/02/16 16:00 97.2 80 16 133/80 95 08/02/16 12:00 97.0 80 16 144/99 95 08/02/16 08:08 18 08/02/16 08:00 96.8 70 16 135/84 96 08/02/16 00:00 98.3 90 18 159/94 96 I/O 08/01/16 08/01/16 08/01/16 08/02/16 08/02/16 08/02/16 07:00 15:00 23:00 07:00 15:00 23:00 Intake Total 1000 ml 210 ml 480 ml 500 ml 1010 ml Balance 1000 ml 210 ml 480 ml 500 ml 1010 ml Intake Oral 1000 ml 210 ml 480 ml 500 ml 1010 ml # Voids 3 4 3 6 1 1 # Bowel Movements 0 0 Result Diagram: 07/29/16 1435 07/30/16 0717 Objective Remarks GENERAL: Alert, NAD. SKIN: Warm and dry. HEAD: Normocephalic. EYES: No scleral icterus. No injection or drainage. NECK: Supple, trachea midline. No JVD or lymphadenopathy. CARDIOVASCULAR: Regular rate and rhythm without murmurs, gallops, or rubs. RESPIRATORY: Breath sounds equal bilaterally. No accessory muscle use. GASTROINTESTINAL: Abdomen soft, non-tender, nondistended. MUSCULOSKELETAL: No cyanosis, or edema. Pain on movement of right leg. BACK: Nontender without obvious deformity. No CVA tenderness. Procedures None. A/P Problem List: (1) Fracture of left inferior pubic ramus ICD Code: S32.592A Status: Acute (2) Hypothyroidism ICD Code: E03.9 Status: Acute (3) Hx of pulmonary embolus ICD Code: Z86.711 Status: Acute Assessment and Plan Ms. York is a pleasant 86-year-old female with a history of dementia, hypothyroidism, pulmonary embolism who presents to the emergency department on due to a mechanical fall. She sustained left inferior pubic ramus fracture. Orthopedic surgery recommended non-operative conservative management. - Left inferior pubic ramus fracture - [place], morphine for pain. - case management to look into rehabilitation possibilities. - Continue PT. If SNF is not arranged, home health would be an option. - Hypothyroidism - continue levothyroxine 75 g daily. - History of pulmonary embolism - INR 1.5. - Continue Warfarin 5mg QDay. May increase Warfarin on 08/03/2016. Full code. Warfarin. Problem Qualifiers (1) Fracture of left inferior pubic ramus: Qualified Code: S32.592A - Fracture of left inferior pubic ramus, closed, initial encounter Alonso Frances DO Aug 02, 2016 22:41
[2016-08-03] VITALS: BP 135/75; PULSE 77; RESP 18; TEMP 96.6; O2SAT 95
[2016-08-03] MEDS: LEVOTHYROXINE SODIUM 75 MCG TAB PO SCH (05:07)
[2016-08-03] MEDS: ACETAMINOPHEN/HYDROcodone 325 MG/5 MG TAB PO PRN ×4 (05:07→13:49)
[2016-08-03 08:00] VITALS: BP 135/71; PULSE 80; RESP 18; TEMP 96.8; O2SAT 96
[2016-08-03] MEDS: SODIUM CHLORIDE 0.9% FLUSH 10 ML FLUSH IV FLUSH SCH (09:00)
[2016-08-03] MEDS: DOCUSATE SODIUM 100 MG CAP PO SCH (09:20)
[2016-08-03] MEDS ORDERED: WALKER WHEELS/F1 MIS (10:20)
--- NOTE | 2016-08-03 10:25 | HHI.PR ---
Subjective Remarks Follow up for left pubic ramus fracture. Patient is doing well. She walked with PT today. No fever, chills. Wants to go to SNF soon. Objective Vitals Vital Signs Date Time Temp Pulse Resp B/P Pulse Ox O2 Delivery O2 Flow Rate FiO2 08/03/16 08:00 96.8 80 18 135/71 96 08/03/16 00:00 96.6 77 18 135/75 95 08/02/16 20:00 97.0 72 20 122/77 99 08/02/16 17:00 18 08/02/16 16:00 97.2 80 16 133/80 95 08/02/16 12:00 97.0 80 16 144/99 95 I/O 08/02/16 08/02/16 08/02/16 08/03/16 08/03/16 08/03/16 07:00 15:00 23:00 07:00 15:00 23:00 Intake Total 480 ml 500 ml 1010 ml 480 ml Balance 480 ml 500 ml 1010 ml 480 ml Intake Oral 480 ml 500 ml 1010 ml 480 ml # Voids 6 1 1 3 # Bowel Movements 0 0 1 Result Diagram: 07/30/16 0717 Objective Remarks GENERAL: Alert, NAD. SKIN: Warm and dry. HEAD: Normocephalic. EYES: No scleral icterus. No injection or drainage. NECK: Supple, trachea midline. No JVD or lymphadenopathy. CARDIOVASCULAR: Regular rate and rhythm without murmurs, gallops, or rubs. RESPIRATORY: Breath sounds equal bilaterally. No accessory muscle use. GASTROINTESTINAL: Abdomen soft, non-tender, nondistended. MUSCULOSKELETAL: No cyanosis, or edema. Pain on movement of right leg. BACK: Nontender without obvious deformity. No CVA tenderness. Procedures None. A/P Problem List: (1) Fracture of left inferior pubic ramus ICD Code: S32.592A Status: Acute (2) Hypothyroidism ICD Code: E03.9 Status: Acute (3) Hx of pulmonary embolus ICD Code: Z86.711 Status: Acute Assessment and Plan Ms. York is a pleasant 86-year-old female with a history of dementia, hypothyroidism, pulmonary embolism who presents to the emergency department on due to a mechanical fall. She sustained left inferior pubic ramus fracture. Orthopedic surgery recommended non-operative conservative management. - Left inferior pubic ramus fracture - [place], morphine for pain. - case management to look into rehabilitation possibilities. - Continue PT. Will discuss with CM about SNF options. - Hypothyroidism - continue levothyroxine 75 g daily. - History of pulmonary embolism - INR 1.5. - Increase Warfarin 5mg to 6mg Qday. PT/INR in the AM on 08/04/2016. Full code. Warfarin. Problem Qualifiers (1) Fracture of left inferior pubic ramus: Qualified Code: S32.592A - Fracture of left inferior pubic ramus, closed, initial encounter Alonso Frances DO Aug 03, 2016 10:25 am
[2016-08-03] MEDS ORDERED: WARFARIN SOD 6 MG TAB PO SCH ×2 (11:30→16:00)
[2016-08-03 12:00] VITALS: BP 144/79; PULSE 74; RESP 20; TEMP 96.9; O2SAT 99
--- NOTE | 2016-08-03 12:12 | HHI.FF ---
Face to Face Verification Diagnosis: (1) Fracture of left inferior pubic ramus Physical Therapy Order: Evaluate and Treat, Improve ambulation, Strength and gait training Home Health Nursing Order: Medical education Signs/symptoms of disease process Nursing assessment with vital signs I have seen patient Kathie York on 08/03/16. My clinical findings support the need for the requested home health care services because: Ltd mobility - disease progression Deconditioned w/ increased weakness Limited ability to care for self Impaired cognition/judgement High risk of falls I certify that my clinical findings support that this patient is homebound because: Unsteady gait/balance Unsafe to leave home unassisted Need for psychosocial assistance Unable to use public transportation Alonso Frances DO Aug 03, 2016 12:12 pm
[2016-08-03] MEDS ORDERED: HYDR-3580 PO (12:19)
== END 2016-08-03 15:23 | disposition home or self-care (01) | DRG 536 ==
LOC: PHED 13:24 → PHEDA 18:14 → PH3A 21:40 → OBSVTOIN 08-01 13:20
PROVIDERS: ADMIT Hospitalist; ATTEND Hospitalist
DX: S32.592A Other specified fracture of left pubis, initial encounter for closed fracture (principal); F03.90 Unspecified dementia, unspecified severity, without behavioral disturbance, psychotic disturbance, mood disturbance, and anxiety; E03.9 Hypothyroidism, unspecified; E78.5 Hyperlipidemia, unspecified; W01.0XXA Fall on same level from slipping, tripping and stumbling without subsequent striking against object, initial encounter; Y92.481 Parking lot as the place of occurrence of the external cause; Z79.01 Long term (current) use of anticoagulants; Z86.711 Personal history of pulmonary embolism
CPT/HCPCS: 70450; 71010; 72100; 72125; 72170; 74177; 80048; 80053; 82550; 85025; 85610; 85730; 96374; G0378; G8987-GP; G8988-GP; J2405; Q9967